=== PATIENT | male | born 1995 | race Two or more races ===

== ENCOUNTER 2020-12-23 01:06 | Emergency (ER) | payer SELFPAY ==
[~2020-12-23] VITALS: Ht 182.9 cm; Wt 77.1 kg
--- NOTE | 2020-12-23 01:25 | NUR ---
BIB SELF C/O C/P SINCE YESTERDAY DESCRIBED PRESSURE AND CRAMPING THAT RADIATES TO THE BACK. REPORTS NASUEA AND PAIN RADIATING TO THE BACK. PAIN 10/08. ONSET SINCE YESTERDAY. PT PLACED ON SENIOR ASSISTANT MANAGER. VITAL SIGNS STABLE. EKG COMPLETED BLOOD DRAWN AND SENT TO LAB. RESPIRATIONS EVEN AND UNLABORED MD WAS AT BEDSIDE.
[2020-12-23 01:28] LABS: BASOPHILS # (AUTO) 0.2 K/uL (0.0-0.2); BASOPHILS % (AUTO) 2.8 % (0.0-2.0); EOSINOPHILS % (AUTO) 0.8 % (0.0-6.0); HEMATOCRIT 46 % (39-51); HEMOGLOBIN 15.9 g/dL (13.5-17.5); LYMPHOCYTES # (AUTO) 2.2 K/uL (0.8-4.8); LYMPHOCYTES % (AUTO) 26.9 % (20.0-44.0); MEAN CORPUSCULAR HGB CONC 35 g/dl (31.0-36.0); MEAN CORPUSCULAR VOLUME 95 fL (80-96); MONOCYTES # (AUTO) 0.9 K/uL (0.1-1.30); MONOCYTES % (AUTO) 10.4 % (2.0-12.0); NEUTROPHILS # (AUTO) 4.9 K/uL (1.8-8.9); NEUTROPHILS % (AUTO) 59.1 % (43.0-81.0); PLATELET COUNT (AUTO) 276 K/uL (150-450); WHITE BLOOD COUNT (AUTO) 8.3 K/uL (4.3-11.0)
--- NOTE | 2020-12-23 01:29 | NUR ---
XRAY AT BEDSIDE
[2020-12-23 01:45] LABS: CALCIUM, SERUM 9.6 mg/dL (8.5-10.1); CARBON DIOXIDE 30 mmol/L (21-32); CHLORIDE 91 mmol/L (98-107); CREATININE 1.3 mg/dL (0.6-1.3); GLUCOSE 111 mg/dL (74-106); POTASSIUM 3.3 mmol/L (3.5-5.1); SODIUM SERUM 131 mmol/L (136-145); UREA NITROGEN, BLOOD 16 mg/dL (7-18)
--- NOTE | 2020-12-23 02:20 | NUR ---
PT DISCHARGED HOME IN STABLE CONDITION. VERBAL AND WRITTEN INSTRUCTIONS PROVIDED AND VERBALIZED UNDERSTANDING
[2020-12-23 02:21] VITALS: BP 122/76
== END 2020-12-23 02:21 | disposition home or self-care (01) ==
LOC: ER 01:09
DX: R07.89 Other chest pain (principal)
CPT/HCPCS: 36415; 71045-TC; 80048-TC; 84484-TC; 85025-TC